=== PATIENT | male | born 1940 | race Caucasian/White ===

== ENCOUNTER 2018-06-04 08:12 | Outpatient (CLI) | payer MEDICARE, OTHER | END 2018-06-04 08:13 | disposition home or self-care (01) | LOC: C.CTH 08:12 | DX: R13.10 Dysphagia, unspecified (principal) ==

== ENCOUNTER 2018-06-08 08:21 | Outpatient (CLI) | payer MEDICARE, OTHER | END 2018-06-08 08:22 | disposition home or self-care (01) | LOC: C.MRIC 08:22 | DX: R13.14 Dysphagia, pharyngoesophageal phase (principal) ==